=== PATIENT | female | born 1950 ===

== ENCOUNTER 2021-05-04 10:46 | Emergency (ER) | payer OTHER ==
[~2021-05-04] VITALS: Ht 160 cm; Wt 75.7 kg
[2021-05-04] MEDS ORDERED: COZAAR50 MG (10:49)
== END 2021-05-04 18:45 | disposition home or self-care (01) ==
LOC: ER 10:46
DX: R10.11 Right upper quadrant pain (principal); R10.12 Left upper quadrant pain; R50.9 Fever, unspecified; Z03.818 Encounter for observation for suspected exposure to other biological agents ruled out